=== PATIENT | male | born 1970 | race Caucasian/White ===

== ENCOUNTER 2018-07-27 00:07 | Emergency (ER) | payer SELFPAY ==
[~2018-07-27] VITALS: Ht 170.2 cm; Wt 68.0 kg
[2018-07-27 00:10] VITALS: BP 100/69
== END 2018-07-27 03:06 | disposition left against medical advice (07) ==
LOC: ER 00:07
DX: M79.601 Pain in right arm (principal); Z53.21 Procedure and treatment not carried out due to patient leaving prior to being seen by health care provider